=== PATIENT | female | born 1985 | race Caucasian/White ===

== ENCOUNTER 2018-02-02 08:46 | Emergency (ER) | payer BC, MEDICAID ==
[2018-02-02 09:21] LABS: ABS Basophils 0.1 10^3/ul (0-0.2); ABS Eosinophils 0.3 10^3/ul (0-0.6); ABS Lymphocytes 3.4 10^3/ul (1.0-4.8); ABS Monocytes 0.9 10^3/ul (0-0.8); ABS Neutrophils 8.3 10^3/ul (1.5-7.7); ABS Nucleated RBC 0 10^3/ul; Hematocrit 40 % (35-47); Hemoglobin 13.8 g/dl (12.0-16.0); Lymphocyte % 26.2 % (25-47); Mean Corpuscular HGB Conc 34 g/dl (31-36); Mean Corpuscular Hemoglobin 29 pg (27-31); Mean Corpuscular Volume 85 fL (80-97); Mean Platelet Volume 7.6 um3 (7.4-10.4); Nucleated Red Blood Cells % 0; Platelet Count 323 10^3/ul (150-450); Red Cell Distribution Width 13 % (10.5-15); White Blood Count 12.9 10^3/ul (3.5-10.8)
[2018-02-02 09:26] LABS: INR 0.92 (0.77-1.02)
[2018-02-02 09:38] LABS: EGFR Non-African American 82.6 (>60)
[2018-02-02 11:16] VITALS: BP 141/87
--- NOTE | 2018-02-02 11:31 | RAD ---
Indication: Stagnant beta hCG levels. Unknown gestational age. Comparison: No relevant prior exams available on the [facility] PACS for comparison. Technique: Transvaginal obstetrical ultrasound. Report: 0.42 cm mean diameter cystic structure at the fundal portion of the endometrium without visualized pole or yolk sac. Negative for fluid within the endocervical canal. 2.6 x 1.9 x 1.9 cm RIGHT ovary with documented vascular flow is remarkable for small follicles only. 1.3 x 0.9 x 0.8 cm irregular margin complex cystic structure without associated vascularity on Doppler inferior to the RIGHT ovary represent a paraovarian cyst or potentially an ectopic given absence of a definitive documented IUP. 3.1 x 3.1 x 2.3 cm LEFT ovary with documented vascular flow is remarkable for a 1.6 cm maximum dimension complex heterogeneous echogenicity lesion devoid of intrinsic vascularity. This structure is low suspicion given small size. The differential includes an involuting hemorrhagic cyst as well as a corpus luteum. Negative for free pelvic fluid. IMPRESSION: #. As no definitive IUP is documented the 1.3 cm nonspecific complex cystic structure inferior to the RIGHT ovary is suspicious for a potential ectopic . Correlate with clinical assessment and serial beta-hCG. #. Negative for free pelvic fluid.
--- NOTE | 2018-02-02 12:33 | ED ---
- HPI Summary HPI Summary: Patient is a 32-year-old female who is approximately 4 weeks presenting to the ED with a concern for a possible ectopic. She states she had her hCG obtained 1 week ago which was at 313, rechecked yesterday at 405. Transvaginal and transabdominal ultrasound both obtained at her [facility] which did not show an IUP or signs of ectopic. However, she called her [facility] today and they requested she come to the ED to have a further checkup to see if ectopic is present. She denies any pain. Denies any vaginal bleeding or discharge. Denies any back pain or urinary symptoms. She states she feels otherwise well and at her baseline. - History of Current Complaint Chief Complaint: EDOBProblems Stated Complaint: OB PROBLEM/ Time Seen by Provider: 02/02/18 09:00 Hx Obtained From: Patient Chief Complaint: Concern for Embryonic Dem Onset/Duration: Started Days Ago Timing: Constant Current Severity: None Pain Intensity: 0 Location of Pain: None Character: None Associated Signs and Symptoms: Positive: Negative - Allergies/Home Medications Allergies/Adverse Reactions: Allergies Allergy/AdvReac Type Severity Reaction Status Date / Time Penicillins Allergy Swelling Verified 02/02/18 08:53 Home Medications: Home Medications Sertraline HCl [Zoloft] 100 mg PO DAILY 02/02/18 [History Confirmed 02/02/18] PMH/Surg Hx/FS Hx/Imm Hx Previously Healthy: Yes - Immunization History Hx Pertussis Vaccination: No Immunizations Up to Date: Unable to Obtain/Confirm Infectious Disease History: No Infectious Disease History: Denies: Traveled Outside the [place] in Last 30 Days - Social History Occupation: Unemployed Lives: With Family Alcohol Use: None Hx Substance Use: No Substance Use Type: Reports: None Smoking Status (MU): Never Smoked Tobacco Review of Systems Constitutional: Negative Negative: Fever, Chills, Fatigue, Skin Diaphoresis Negative: Palpitations, Chest Pain Negative: Shortness Of Breath, Cough Genitourinary: Negative Positive: no symptoms reported, see HPI Negative: Arthralgia, Myalgia Skin: Negative Psychological: Normal All Other Systems Reviewed And Are Negative: Yes Physical Exam - Physical Exam Triage Information Reviewed: Yes Vital Signs Reviewed: Yes Appearance: Positive: Well-Appearing, Well-Nourished Skin: Positive: Warm, Skin Color Reflects Adequate Perfusion Head/Face: Positive: Normal Head/Face Inspection Eyes: Positive: EOMI, BECCA, Conjunctiva Clear Neck: Positive: Supple, No Lymphadenopathy Respiratory/Lung Sounds: Positive: Clear to Auscultation, Breath Sounds Present Cardiovascular: Positive: RRR, Pulses are Symmetrical in both Upper and Lower Extremities Bowel Sounds: Positive: Present Musculoskeletal: Positive: Normal, Strength/ROM Intact Neurological: Positive: Alert, Oriented to Person Place, Time, Speech Normal Psychiatric: Positive: Affect/Mood Appropriate Diagnostics - Vital Signs Vital Signs Temp Pulse Resp BP Pulse Ox 02/02/18 11:35 98.2 F 88 16 141/87 100 02/02/18 11:16 141/87 02/02/18 11:15 88 100 02/02/18 08:49 97.7 F 90 16 125/86 98 - Laboratory Lab Results: Lab Results 02/02/18 02/02/18 02/02/18 Range/Units 09:07 09:07 09:07 WBC 12.9 H (3.5-10.8) 10^3/ul RBC 4.70 (4.00-5.40) 10^6/ul Hgb 13.8 (12.0-16.0) g/dl Hct 40 (35-47) % MCV 85 (80-97) fL MCH 29 (27-31) pg MCHC 34 (31-36) g/dl RDW 13 (10.5-15) % Plt Count 323 (150-450) 10^3/ul MPV 7.6 (7.4-10.4) um3 Neut % (Auto) 64.2 (38-83) % Lymph % (Auto) 26.2 (25-47) % [place] % (Auto) 6.6 (0-7) % Eos % (Auto) 2.0 (0-6) % Baso % (Auto) 1.0 (0-2) % Absolute Neuts (auto) 8.3 H (1.5-7.7) 10^3/ul Absolute Lymphs (auto) 3.4 (1.0-4.8) 10^3/ul Absolute Monos (auto) 0.9 H (0-0.8) 10^3/ul Absolute Eos (auto) 0.3 (0-0.6) 10^3/ul Absolute Basos (auto) 0.1 (0-0.2) 10^3/ul Absolute Nucleated RBC 0 10^3/ul Nucleated RBC % 0 INR (Anticoag Therapy) 0.92 (0.77-1.02) Sodium 137 (135-145) mmol/L Potassium 3.6 (3.5-5.0) mmol/L Chloride 105 (101-111) mmol/L Carbon Dioxide 22 (22-32) mmol/L Anion Gap 10 (2-11) mmol/L BUN 9 (6-24) mg/dL Creatinine 0.80 (0.51-0.95) mg/dL Est GFR ( Amer) 100.0 (>60) Est GFR (Non-Af Amer) 82.6 (>60) BUN/Creatinine Ratio 11.3 (8-20) Glucose 126 H (70-100) mg/dL Calcium 8.6 (8.6-10.3) mg/dL Total Bilirubin 0.40 (0.2-1.0) mg/dL AST 20 (13-39) U/L ALT 21 (7-52) U/L Alkaline Phosphatase 70 (34-104) U/L Total Protein 7.2 (6.4-8.9) g/dL Albumin 4.0 (3.2-5.2) g/dL Globulin 3.2 (2-4) g/dL Albumin/Globulin Ratio 1.3 (1-3) Beta HCG, Quant 504.56 mIU/mL Result Diagrams: 02/02/18 09:07 02/02/18 09:07 Lab Statement: Any lab studies that have been ordered have been reviewed, and results considered in the medical decision making process. Course/Dx - Course Course Of Treatment: During the course of treatment, the patient is evaluated for possible ectopic due to low hCG levels. HCG obtained and is 505, this is increased from yesterday however this is not doubling as it showed a normal IUP. Transvaginal ultrasound obtained to assess for ectopic. There is no evidence of an IUP or ectopic at this time. Other labs are stable. She remains asymptomatic. I have advised she follow up with her [facility] next week when she returns from vacation or return to the ED if she develops any worsening symptoms. She is agreeable to this. - Diagnoses Provider Diagnoses: Elevated serum hCG Discharge - Sign-Out/Discharge Documenting (check all that apply): Patient Departure - Discharge Plan Condition: Stable Disposition: HOME Referrals: Kenya Cason NP [Primary Care Provider] - Additional Instructions: You will need to have more HCG's run before determination of viable Please follow up with the OBGYN as scheduled - Billing Disposition and Condition Condition: STABLE Disposition: Home
== END 2018-02-02 11:35 | disposition home or self-care (01) ==
LOC: ED 08:46
DX: O02.81 Inappropriate change in quantitative human chorionic gonadotropin (hCG) in early pregnancy (principal); Z88.0 Allergy status to penicillin
CPT/HCPCS: 36415; 76817; 80053; 84702; 85025; 85610; 99282

== ENCOUNTER 2018-06-22 15:56 | Emergency (ER) | payer BC, MEDICAID ==
--- NOTE | 2018-06-22 16:52 | ED ---
Skin Complaint - HPI Summary HPI Summary: A 32 y/o female presents to [facility] due to a possible allergic reaction with a chief complaint of rash/hives since 20:00 06/21/18. She claims that her hives have been intermittent. She denies using any new medication/soap/lotion. She claims that she has been taking benadryl but her rash still comes back. She states that her throat is a little tight but denies SOB. 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 - History of Current Complaint Chief Complaint: EDRashSkinAbscess Time Seen by Provider: 06/22/18 16:42 Stated Complaint: POSS ALLERGIC RXN Hx Obtained From: Patient Onset/Duration: Started Hours Ago Skin Exposure Onset/Duration: Hours Ago Timing: Intermittent Onset Severity: Mild Current Severity: Mild Pain Intensity: 0 Pain Scale Used: 0-10 Numeric Skin Location: Diffuse Character: Hives Aggravating Symptom(s): Nothing Alleviating Symptom(s): Nothing Associated Signs & Symptoms: Throat Tightening Related History: Insect Bite/Sting - Allergy/Home Medications Allergies/Adverse Reactions: Allergies Allergy/AdvReac Type Severity Reaction Status Date / Time fire ant Allergy Anaphylatic Verified 06/22/18 16:22 Shock Penicillins Allergy Swelling Verified 06/22/18 16:31 Home Medications: Home Medications NK [No Home Medications Reported] 06/22/18 [History Confirmed 06/22/18] PMH/Surg Hx/FS Hx/Imm Hx Endocrine/Hematology History: Denies: Hx Diabetes Cardiovascular History: Denies: Hx Coronary Artery Disease, Hx Hypercholesterolemia, Hx Hypertension Infectious Disease History: No Infectious Disease History: Denies: Traveled Outside the [place] in Last 30 Days - Family History Known Family History: Negative: Cardiac Disease, Hypertension, Diabetes - Social History Alcohol Use: Occasionally Hx Substance Use: No Substance Use Type: Reports: None Smoking Status (MU): Never Smoked Tobacco Review of Systems Negative: Fever Respiratory: Other - positive: throat tightness Negative: Shortness Of Breath Positive: Rash All Other Systems Reviewed And Are Negative: Yes Physical Exam - Summary Physical Exam Summary: Appearance: The patient is well-nourished in no acute distress and in no acute pain. Skin: The skin is warm and dry. Some uriticarial areas on the wrists. HEENT: The head is normocephalic and atraumatic. The pupils are equal and reactive. The conjunctivae are clear and without drainage. Nares are patent and without drainage. Mouth reveals moist mucous membranes and the throat is without erythema and exudate. The external ears are intact. The ear canals are patent and without drainage. The tympanic membranes are intact. Neck: The neck is supple with full range of motion and non-tender. There are no carotid bruits. There is no neck vein distension. Respiratory: Chest is non-tender. Lungs are clear to auscultation and breath sounds are symmetrical and equal. Cardiovascular: Heart is regular rate and rhythm. There is no murmur or rub auscultated. There is no peripheral edema and pulses are symmetrical and equal. Abdomen: The abdomen is soft and non-tender. There are normal bowel sounds heard in all four quadrants and there is no organomegaly palpated. Musculoskeletal: There is no back tenderness noted. Extremities are non-tender with full range of motion. There is good capillary refill. There is no peripheral edema or calf tenderness elicited. Neurological: Patient is alert and oriented to person, place and time. The patient has symmetrical motor strength in all four extremities. Cranial nerves are grossly intact. Deep tendon reflexes are symmetrical and equal in all four extremities. Psychiatric: The patient has an appropriate affect and does not exhibit any anxiety or depression. Triage Information Reviewed: Yes Vital Signs On Initial Exam: Initial Vitals Temp Pulse Resp BP Pulse Ox 98.1 F 96 16 127/63 98 06/22/18 16:00 12 16:00 06/22/18 16:00 06/22/18 16:00 06/22/18 16:00 Vital Signs Reviewed: Yes Diagnostics - Vital Signs Vital Signs Temp Pulse Resp BP Pulse Ox 06/22/18 16:00 98.1 F 96 16 127/63 98 - Laboratory Lab Statement: Any lab studies that have been ordered have been reviewed, and results considered in the medical decision making process. Re-Evaluation - Re-Evaluation First Eval Re-Evaluation Time: 18:55 Change: Improved Comment: Pt ready for discharge Course/Dx - Course Course Of Treatment: Ms. Damon started getting hives yesterday. She is had to take Benadryl every 4 hours or they return. She also complains a little bit of tightness in her throat. She last took Benadryl about 5 hours ago and has a couple of urticarial lesions on her wrists at this time. She was nontoxic in appearance and her vital signs are stable throughout her stay. She was given by mouth prednisone, Pepcid and Benadryl here and observed for a period of time. She stated that she felt much improved and was discharged in good condition - Diagnoses Provider Diagnoses: Urticaria Discharge - Sign-Out/Discharge Documenting (check all that apply): Patient Departure - DC - Discharge Plan Condition: Stable Disposition: HOME Patient Education Materials: Urticaria (ED) Referrals: [facility] [place]Outside] (2-3 days) Additional Instructions: Follow up with your PCP in 2-3 days. Return to the ED if you experience any new or worsening symptoms. - Billing Disposition and Condition Condition: STABLE Disposition: Home - Attestation Statements Document Initiated by Molly: Yes Documenting Scribe: Brien Garcia Provider For Whom Molly is Documenting (Include Credential): Kenn Spencer MD Scribe Attestation: IBrien, scribed for Kenn Spencer MD on 06/22/18 at 2046. Scribe Documentation Reviewed: Yes Provider Attestation: The documentation as recorded by the Brien elizabeth accurately reflects the service I personally performed and the decisions made by me, Kenn Spencer MD Status of Scribe Document: Viewed
[2018-06-22] MEDS ORDERED: diPHENhydraMINE PO* 50 MG PO ONE (17:06)
[2018-06-22] MEDS ORDERED: Famotidine TAB* 20 MG PO ONE (17:06)
[2018-06-22] MEDS ORDERED: predniSONE TAB* 20 MG PO ONE (17:06)
[2018-06-22] MEDS ORDERED: diPHENhydraMINE PO* 25 MG ONE (17:11)
[2018-06-22 19:11] VITALS: BP 133/76
== END 2018-06-22 19:10 | disposition home or self-care (01) ==
LOC: ED 15:56
DX: L50.9 Urticaria, unspecified (principal)
CPT/HCPCS: 99282; A9270-GY; J7512

== ENCOUNTER 2018-09-17 17:30 | Emergency (ER) | payer BC, MEDICAID ==
[2018-09-17 17:39] VITALS: BP 137/92
--- NOTE | 2018-09-17 17:44 | UC ---
Complaint Female HPI - HPI Summary HPI Summary: 33 yo female presents with urinary urgency, frequency, and burning since yesterday. She tells me that she has had UTIs in the past and this feels the same. She took azo and had some mild relief at first, but no longer. Denies fever, chills, abdominal pain, n/v, or flank pain. - History Of Current Complaint Chief Complaint: UCGU Stated Complaint: URINARY COMPLAINT Time Seen by Provider: 09/17/18 17:43 Hx Obtained From: Patient Hx Last Menstrual Period: currently Onset/Duration: Sudden Onset Timing: Constant Severity Initially: Mild Severity Currently: Moderate Pain Intensity: 6 Pain Scale Used: 0-10 Numeric - Allergies/Home Medications Allergies/Adverse Reactions: Allergies Allergy/AdvReac Type Severity Reaction Status Date / Time fire ant Allergy Anaphylatic Verified 09/17/18 17:39 Shock Penicillins Allergy Swelling Verified 09/17/18 17:39 Home Medications: Home Medications Azo Bladder Relief 09/17/18 [History] ISOtretinoin [Isotretinoin] 10 mg PO DAILY 09/17/18 [History Confirmed 09/17/18] PMH/Surg Hx/FS Hx/Imm Hx - Additional Past Medical History Additional PMH: Acne - Surgical History Surgical History: Yes Surgery Procedure, Year, and Place: breast reduction age 16 - Family History Known Family History: Negative: Cardiac Disease, Hypertension, Diabetes - Social History Occupation: Employed Full-time Lives: With Family Alcohol Use: Rare Substance Use Type: None Smoking Status (MU): Never Smoked Tobacco Review of Systems All Other Systems Reviewed And Are Negative: Yes Constitutional: Positive: Negative Skin: Positive: Negative Respiratory: Positive: Negative Cardiovascular: Positive: Negative Gastrointestinal: Positive: Negative Genitourinary: Positive: Dysuria, Frequency, Urgency Neurological: Positive: Negative Psychological: Positive: Negative Physical Exam - Summary Physical Exam Summary: GENERAL: NAD. WDWN. No pain distress. SKIN: No rashes, sores, lesions, or open wounds. NECK: Supple. Nontender. No lymphadenopathy. CHEST: CTAB. No r/r/w. No accessory muscle use. Breathing comfortably and in no distress. CV: RRR. Without m/r/g. Pulses intact. Cap refill <2seconds ABDOMEN: Soft. NTTP. No distention or guarding. No CVA tenderness. Bowel sounds present NEURO: Alert. PSYCH: Age appropriate behavior. Triage Information Reviewed: Yes Vital Signs: Initial Vital Signs Temp 97.6 F 09/17/18 17:36 Pulse 94 09/17/18 17:36 Resp 16 09/17/18 17:36 BP 137/92 09/17/18 17:36 Pulse Ox 100 09/17/18 17:36 Vital Signs Reviewed: Yes Complaint Female Dx - Course Course Of Treatment: Unable to obtain UA due to AZO. Urine will be sent for culture. Rx for macrobid and pyridium. - Differential Dx/Diagnosis Provider Diagnosis: UTI (urinary tract infection) Discharge - Sign-Out/Discharge Documenting (check all that apply): Patient Departure All imaging exams completed and their final reports reviewed: No Studies - Discharge Plan Condition: Stable Disposition: HOME Prescriptions: Nitrofurantoin Monohyd/M-Cryst [Macrobid 100 mg Capsule] 100 mg PO BID #10 cap Phenazopyridine 200 mg (NF) [Pyridium 200 MG tab *] 200 mg PO TID #6 tab Patient Education Materials: Urinary Tract Infection in Women (DC) Referrals: Yaz Maloney MD [Primary Care Provider] - Additional Instructions: If you develop a fever, shortness of breath, chest pain, new or worsening symptoms - please call your PCP or go to the ED. Your blood pressure was high at todays visit. Please see your primary provider within 4 weeks for recheck and re-evaluation. - Billing Disposition and Condition Condition: STABLE Disposition: Home
== END 2018-09-17 17:55 | disposition home or self-care (01) ==
LOC: UCEAST 17:30
DX: Z88.0 Allergy status to penicillin (principal); N39.0 Urinary tract infection, site not specified; Z87.440 Personal history of urinary (tract) infections
CPT/HCPCS: 87086; 99212; G0463

== ENCOUNTER 2019-05-11 01:57 | Emergency (ER) | payer BC ==
--- NOTE | 2019-05-11 02:08 | ED ---
Substance Abuse/Use - HPI Summary HPI Summary: LEVEL 5 CAVEAT: HPI LIMITED DUE TO ETOH INTOXICATION. This patient is a 33 year old female brought in by EMS presenting to [facility] with a chief complaint of ETOH intoxication. - History Of Current Complaint Stated Complaint: ETOH PER EMS Time Seen by Provider: 05/11/19 02:04 Hx Last Menstrual Period: currently - Allergies/Home Medications Allergies/Adverse Reactions: Allergies Allergy/AdvReac Type Severity Reaction Status Date / Time fire ant Allergy Anaphylatic Verified 09/17/18 17:39 Shock Penicillins Allergy Swelling Verified 09/17/18 17:39 PMH/Surg Hx/FS Hx/Imm Hx Endocrine/Hematology History: Denies: Hx Diabetes Cardiovascular History: Denies: Hx Coronary Artery Disease, Hx Hypercholesterolemia, Hx Hypertension - Surgical History Surgery Procedure, Year, and Place: breast reduction age 16 - Family History Known Family History: Negative: Cardiac Disease, Hypertension, Diabetes - Social History Alcohol Use: Currently Intoxicated Hx Substance Use: No Substance Use Type: Reports: None Smoking Status (MU): Never Smoked Tobacco - Additional Comments History Additional Comments: LEVEL 5 CAVEAT: PMH LIMITED DUE TO ETOH INTOXICATION. Review of Systems - ROS Summary Review of Systems Summary: LEVEL 5 CAVEAT: ROS LIMITED DUE TO ETOH INTOXICATION. Positive: Other - ETOH intoxication All Other Systems Reviewed And Are Negative: No Physical Exam - Summary Physical Exam Summary: General: Well-developed, Well-nourished FEMALE. Lethargic. Arousable but does not answer questions. HEENT: Normocephalic, Atraumatic. Eyes: Conjuctiva normal, PERRL. Ears: TMs within normal limits. Nares: (-) discharge, (-) erythema. Oropharynx: Clear, mucous membranes moist, (-) exudates. Neck: Soft, FROM, (-) lymphadenopathy, (-) thyromegaly, (-) JVD. Cardiovascular: Normal sinus rhythm, (-) murmur. Lungs: Clear to auscultation bilaterally (-) wheezes, (-) rales, (-) rhonchi. Abdomen: Soft, non-tender, non-distended, (-) organomegaly, normal bowel sounds. Back: (-) CVA tenderness Extremities: No edema. Skin: Warm, dry, (-) rash. Neuro: Cannot assess- Patient intoxication Psychiatric: Cannot assess- Patient intoxication. Triage Information Reviewed: Yes Vital Signs On Initial Exam: Temp Pulse Resp BP Pulse Ox 98.7 F 86 20 89/54 99 05/11/19 02:03 05/11/19 02:03 05/11/19 02:03 05/11/19 02:03 05/11/19 02:03 Vital Signs Reviewed: Yes Procedures - Sedation Patient Received Moderate/Deep Sedation with Procedure: No Diagnostics - Laboratory Result Diagrams: 05/11/19 02:40 05/11/19 02:40 Lab Statement: Any lab studies that have been ordered have been reviewed, and results considered in the medical decision making process. Course/Dx - Course Course Of Treatment: 33-year-old female with acute alcohol intoxication. Patient with vomiting. Given IV fluids, Zofran, Protonix. Patient given potassium for hypokalemia. Sign changes shift awaiting sobriety and reevaluation. - Diagnoses Provider Diagnoses: Alcohol intoxication Discharge ED - Sign-Out/Discharge Documenting (check all that apply): Sign-Out Patient Signing out patient TO: Alexis Mathews - At shift change 0700 pending sobriety. - Discharge Plan Condition: Stable Referrals: Yaz Maloney MD [Primary Care Provider] - - Billing Disposition and Condition Condition: STABLE - Attestation Statements Document Initiated by [email or web address]: Yes Documenting Scribe: Nima Kang Provider For Whom Molly is Documenting (Include Credential): Mariah Winn MD Scribe Attestation: Nima Reilly, scribed for Mariah Winn MD on 05/11/19 at 0624. Scribe Documentation Reviewed: Yes Provider Attestation: The documentation as recorded by the Nima elizabeth accurately reflects the service I personally performed and the decisions made by me, Mariah Winn MD Status of Scribe Document: Viewed
[2019-05-11] MEDS ORDERED: NS 0.9% 1000 ML** 1,000 ML IV ONE ×2 (02:27→04:20)
[2019-05-11] MEDS ORDERED: Ondansetron INJ* 2 MG/ML VIAL IV ONE (02:27)
[2019-05-11 02:49] LABS: ABS Basophils 0.1 10^3/ul (0-0.2); ABS Eosinophils 0.1 10^3/ul (0-0.6); ABS Lymphocytes 4.5 10^3/ul (1.0-4.8); ABS Monocytes 0.7 10^3/ul (0-0.8); ABS Neutrophils 7.5 10^3/ul (1.5-7.7); Hematocrit 40 % (35-47); Hemoglobin 13.4 g/dL (12.0-16.0); Lymphocyte % 34.9 %; Mean Corpuscular HGB Conc 33 g/dL (31-36); Mean Corpuscular Hemoglobin 30 pg (27-31); Mean Corpuscular Volume 89 fL (80-97); Mean Platelet Volume 7.7 fL (7.4-10.4); Nucleated Red Blood Cells % 0.1; Platelet Count 369 10^3/uL (150-450); Red Blood Count 4.49 10^6 /uL (3.70-4.87); Red Cell Distribution Width 13 % (10-15); White Blood Count 12.9 10^3/uL (3.5-10.8)
[2019-05-11 03:11] LABS: ALT 23 U/L (7-52); AST 22 U/L (13-39); Albumin/Globulin Ratio 1.3 (1-3); Alkaline Phosphatase 67 U/L (34-104); Anion Gap 12 mmol/L (2-11); BUN/Creatinine Ratio 12.3 (8-20); Blood Urea Nitrogen 9 mg/dL (6-24); CO2 Carbon Dioxide 22 mmol/L (22-32); Calcium 8.6 mg/dL (8.6-10.3); Chloride 101 mmol/L (101-111); EGFR African American 110.4 (>60); EGFR Non-African American 91.3 (>60); Globulin 3.1 g/dL (2-4); Glucose 164 mg/dL (70-100); Potassium 2.9 mmol/L (3.5-5.0); Sodium 135 mmol/L (135-145); Total Protein 7.1 g/dL (6.4-8.9)
[2019-05-11 03:16] LABS: Acetaminophen < 15 mcg/mL; Alcohol 291 mg/dL (<10); Salicylate < 2.50 mg/dL (<30)
--- OUTSIDE RECORDS SUMMARY | 2019-05-11 05:57 | XMS REPORT | Continuity of Care Document ---
:1985 Author Organization [facility] Address [address] [place] [address] Phone Care Team Providers Name Role Phone Vanessa Deng NP Unavailable Unavailable Allergies, Adverse Reactions, Alerts Substance Reaction Status Penicillins swelling Active Medications Medication Instructions Dosage Effective Dates Status Comments (start - stop) acyclovir 400 mg take 1 tablet by oral - Active tablet route 2 times a day Lexapro 20 mg tablet - Active Ortho Tri-Cyclen LO - Active (28) 0.18 mg/0.215 mg/0.25 mg-25 mcg tablet isotretinoin 10 mg - Active capsule Problems Condition Effective Dates (start - Clinical Status Comments stop) Human immunodeficiency virus [HIV] - counseling Encounter for surveillance of contraceptive pills Encntr screen for infections w sexl mode of transmiss Right lower quadrant pain Cyst of Bartholin's gland Dysuria Encounter for test, result negative Acute vaginitis Human immunodeficiency virus [HIV] - counseling Encounter for screening for human - immunodeficiency virus Encounter for surveillance of contraceptive pills Encntr screen for infections w sexl mode of transmiss Counseling, unspecified Encounter for surveillance of contraceptive pills Encntr for cerv smear to cnfrm norm smr fol init abn smear Encntr screen for infections w sexl mode of transmiss Encounter for test, result positive Human immunodeficiency virus [HIV] - counseling Encntr screen for infections w sexl mode of transmiss Weeks of gestation of not specified Encounter for screening for human - immunodeficiency virus Atyp squam cell of undet signfc cyto smr crvx (ASC-US) Human immunodeficiency virus [HIV] - counseling Encounter for oth general cnsl and advice on contraception Encntr screen for infections w sexl mode of transmiss Acute vaginitis Encounter for screening for human - immunodeficiency virus Procedures Procedure Date PREVENTIVE COUNSELING, Under 8 Minutes N.GONORRHOEAE, DNA, AMP PROB CHYLMD DNA, AMP PROBE TRICHOMONAS VAGIN, DIR PROBE OFFICE/OUTPATIENT VISIT, EST WET SMEAR ASSAY OF BODY FLUID-PH OTHER Medical Services Contraceptive Damage Prevention Coordinator.Svc. Other Damage Prevention Coordinator.Svc. STI Results Test Name Date and Time Measure Units Reference Range Abnormal Flag Status Comments Panel Description: Wet Mount Final Wet Mount 09:55:03 NegativeHyphae/Michelle: noBudding Final yeast: noTrich: noClue cells: noWBCs: yes (few)Amine/Whiff test: negativepH: 4.0 Panel Description: C trach DNA XXX Ql PCR Final Swab CT - Negative N Final Performed by:
CDD Vaginal 00:00:00 ([id number])

Panel Description: Amplified GC - Vaginal Final Swab GC - Negative N Final : Vaginal 00:00:00 No

Performed by:
CDD ([id number])

Advance Directives Directive Yes / No Effective Date File Name No information Encounters Encounter Practice Location Reason(s) Diagnoses Date Provider Providers Description For Visit Copied on Encounter OFFICE/OUTPA [facility] Pelvic Human Ish Mendez. Referring TIENT VISIT, [facility] [place] Pain immunodeficiency 1 [address] Provider: THOMAS Rome (chief virus [HIV] [address], [place], [place]essa [place] complaint) [place], [address], [place], [address], [address] for [place]. [address] [place] surveillance of St, St, [place], [place], [place], [address]. [id number], screen for [place] infections w tel:[phone] sexl mode of [id number] transmissRight lower quadrant painCyst of Bartholin's gland [facility] DysuriaEncounter Sep-2 Nick Moya. Referring [facility] [place] for [address] Provider: [facility] test, result [address] St, [place], [place], [address]. Romero, [address], 620 vaginitis tel:[phone] [address], [address], [place], [place], [place], [address]. [id number], tel:[phone] [place] [phone] tel:[phone] [facility] Human Sep-0 Александр Referring [facility] [place] immunodeficiency 6- Chika. 620 Provider: [facility] virus [HIV] [address], Chika F[place] counselingEncoun [place], [place], Александр J, [place], [address] [place] [address], [place]. [address] screening for tel:[phone] [address], St, [place], [place] [address] [place], [place], [address]. [id number], virusEncounter tel:[phone] [place] for surveillance [id number] tel:[phone] of contraceptive [phone] pillsEncntr screen for infections w sexl mode of transmiss [facility] Counseling, Sep-0 [place] Vanessa. Referring [facility] [place] unspecified [address] Provider: [facility] [address], [place], [place], [address], [place], [address] [place], 620 [place]. [address], St, [place], [place], [id number], [address].Cons [place] ulting tel:[phone] Provider: [id number] [place]SE [place] [facility]. [facility] Encounter for Sep- Ish Vanessa. Referring [facility] [place] surveillance of [address] Provider: [facility] contraceptive [address], [place], [place], [address], White, [address] [place], 620 cerv smear to [place]. [address] [place] cnfrm norm smr St, St, [place], fol init abn [place], [place], [address]. [id number], screen for [place] infections w tel:[phone] sexl mode of [phone] transmiss [facility] Dec [facility] [place] Kourtney. [address], [place], [place], [facility], [address] [address]. [address] tel:[phone] St, [place], [address] [place], [id number], [place] tel:[phone] [facility] Encounter for Jessicalum Referring [facility] [place] test, Faiza. [address] W Provider: Southern result [address], Faiza Finger positiveHuman [place], [place], [facility] immunodeficiency [address]. M, [address] virus [HIV] tel:[phone] [address], St, [place], counselingEncntr [address] [place], [address]. [id number], infections w tel:[phone] [place] sexl mode of [id number] tel:[phone] transmissWeeks [phone] of gestation of not specifiedEncount er for screening for human immunodeficiency virus [facility] Atyp squam cell Mar-2 [facility] Referring [facility] [place] of undet signfc Kourtney. [address] W Provider: [place] cyto smr crvx [address], Kourtney Finger (ASC-US) [place], [place], Raphaelidi [facility], 620 [address]. s, [address] tel:[phone] [address], St, [place], [address] [place], [place], [address]. [id number], tel:[phone] [place] [phone] tel:[phone] [facility] Human Mar-0 Romeo Referring [facility] [place] immunodeficiency Tricia. [address] Provider: [place] virus [HIV] [address], Tricia Finger counselingEncoun [place], [place], Romeo [facility], [address] ter [place] [address]. M, [address] general cnsl and tel:[phone] [address], St, [place], [place] [address] [place], [place], [address]. [id number], ntr screen for tel:+ [place] infections w [phone] tel:[phone] sexl mode of [id number] transmissAcute vaginitisEncount er for screening for human immunodeficiency virus Family History Family Member Diagnosis Age At Onset 1st degree relative No hx of venous thromboembolism 1st degree relative No hx of coronary heart disease (female <65, male <55) Immunizations Vaccine Date Status Comments HPV (9-valent) administered Source: New Immunization Record HPV (9-valent) pending Source: New Immunization Record HPV (9-valent) pending Source: New Immunization Record Payers Payer name Insurance type Covered green party ID Authorization(s) [facility] [id number] [facility] [id number] [facility] [id number] [facility] [id number] Social History Type Description Quantity Date Captured Comments Alcohol Use Details Unknown Caffeine Use Details Unknown Tobacco Use Status Current non-smoker Smoking Status Never smoker Non-Smoking Tobacco : No Details Available : No Details Available 2018 Use Details Sex Female Vital Signs Date / Height Weight BMI Pulse Blood Temperature Respiratory Body Head BMI Pulse Inhaled Time: Rate Pressure Rate Surface Circumference percentile Ox Ox Area No information Chief Complaint And Reason For Visit Most recent encounter only, dated '04/15/2019 09:20'. Pelvic Pain (chief complaint) Reason For Referral Reason For Referral No information Plan Of Treatment Date Type Action Status Unknown Immunization HPV (9-valent) ordered Unknown Immunization HPV (9-valent) ordered History Of Present Illness Encounter Date Complaint History Of Present Illness No information Functional Status Date Functional Assessment No information Medications Administered Medication Instructions Dosage Effective Dates (start - stop) Status Comments No information Instructions Date Instruction Additional Information No information Assessments Type Assessment Date assessment Human immunodeficiency virus [HIV] counseling assessment Encounter for surveillance of contraceptive pills assessment Encntr screen for infections w sexl mode of transmiss assessment Right lower quadrant pain assessment Cyst of Bartholin's gland Goals Health Concern Goal Type Priority Status Date No information Medical Equipment Description Device [place] Device Identifier Effective Dates (start - stop ) Status No information Mental Status Date Cognitive Assessment Normal Orientation Health Concerns Observation Date No information Concern Status Date No information
--- OUTSIDE RECORDS SUMMARY | 2019-05-11 05:57 | XMS REPORT | Continuity of Care Document ---
:1985 Author Organization [facility] Address [address] [place] [address] Phone Care Team Providers Name Role Phone Catherine TAYLOR, Kourtney Unavailable Unavailable Allergies, Adverse Reactions, Alerts Substance [...] human - immunodeficiency virus Procedures Procedure Date No information Results Test Name Date and Time Measure Units Reference Range Abnormal Flag Status Comments No information Advance Directives Directive Yes / No Effective Date File Name No information Encounters Encounter Practice Location Reason(s) Diagnoses Date Provider Providers Description For Visit Copied on Encounter [facility] Oct-2 [facility] [place] 5 Kourtney. [address], [place], [place], [facility], [address] [address]. [address] tel:[phone] , [place], [address] [place], [id number], [place] tel:[phone] [facility] Human Oct-0 White Vanessa. Referring [facility] [place] immunodeficiency [address] Provider: [place] virus [HIV] [address], [place], [place], [address], [address], [facility] ter for [place]. W [place] [address] surveillance of St, , [place], contrace[place], [place], [address]. [id number], screen for [place] infections w tel:[phone] sexl mode of [id number] transmissRight lower quadrant painCyst of Bartholin's gland [facility] DysuriaEncounter Sep-2 Nick Moya. Referring [facility] [place] for [address] Provider: Southern test, result 9 St, [place], [place], [address]. Romero, 620 [facility], 620 vaginitis tel:[phone] [address], [address], [place], [place], [address]. [id number], tel:[phone] [place] [phone] tel:[phone] [facility] Human Sep-0 Александр Referring [facility] [place] immunodeficiency 6-201 Chika. 620 Provider: [place] virus [HIV] [address], Chika F[place] counselingEncoun [place], Александр J, [place], [address] [place] [address], [place]. [address] screening for tel:[phone], St, [place], human [address] [place], [place], [address]. [id number], virusEncounter tel:+[phone] [place] for surveillance [phone] tel:+ of contraceptive [phone] pillsEncntr screen for infections w sexl mode of transmiss [facility] Counseling, Sep-0 Ish Mendez. Referring [facility] [place] unspecified [address] Provider: [facility] [address], [place], [place], [address], White, 620 [facility], 620 [place]. [address], St, [place], [place], [id number], [address].Cons [place] ulting tel:[phone] Provider: [id number] [place]URSE [place] [facility]. [facility] Encounter for Sep- Ish Mendez. Referring [facility] [place] surveillance of [address] Provider: [facility] contraceptive [address], [place], [place], [address], White, 620 [facility], 620 cerv smear to [place]. W [place] [address] [place] [address] cnfrm norm smr St, St, [place], fol init abn [place], [address]. [id number], screen for [place] infections w tel:[phone] sexl mode of [phone] transmiss [facility] [place] Kourtney. [address], [place], [facility], [address] [address]. [address] tel:+7 St, [place], [address] [place], [id number], [place] tel:+ [phone] [facility] Encounter for Jessicalum Referring [facility] [place] test, Faiza. 620 W Provider: [facility] result [address], Faiza Finger positiveHuman [place], [place] [facility], 620 immunodeficiency [address]. M, [address] virus [HIV] tel:[phone] St, [place], counselingEncntr [address] [place], [address]. [id number], infections w tel:+[phone] [place] sexl mode of [id number] tel:+[phone] transmissWeeks 491942 of gestation of not specifiedEncount er for screening for human immunodeficiency virus [facility] Atyp squam cell Mar-2 Raphaelidis Referring [facility] [place] of undet signfc 7-201 Kourtney. [address] W Provider: Wild cyto smr crvx [address], Kourtney Finger (ASC-US) [place], Raphgayatri [facility], 620 [address]. s, [address] tel:[phone], St, [place], [address] [place], [address]. [id number], tel:[phone] [place] [phone] tel:[phone] [facility] Human Mar-0 Romeo Referring [facility] [place] immunodeficiency 1-201 Tricia. [address] W Provider: Wild virus [HIV] [address], Tricia Finger counselingEncoun [place], [place], [facility], [address] ter for oth [address]. M, [address] general cnsl and tel:[phone], St, [place], [place] [address] [place], [place], [place], [address]. [id number], ntr screen for tel:[phone] [place] infections w [id number] tel:+[phone] sexl mode of [id number] transmissAcute vaginitisEncount er for screening for human [...] Record Payers Payer name Insurance type Covered libertarian ID Authorization(s) [facility] [id number] [facility] [id number] [facility] [id number] [facility] [id number] Social History Type Description Quantity Date Captured Comments Alcohol Use Details Unknown Caffeine Use Details Unknown Tobacco Use Status Unknown Smoking Status Never smoker Sex Female Vital Signs Date / Height Weight BMI Pulse Blood Temperature Respiratory Body Head BMI Pulse Inhaled Time: Rate Pressure Rate Surface Circumference percentile Ox Ox Area No information Chief Complaint And Reason For Visit No information Reason For Referral Reason For Referral No [...] Information No information Assessments Type Assessment Date No information Goals Health Concern Goal Type Priority Status Date No information Medical Equipment Description Device [place] Device Identifier Effective Dates (start - stop ) Status No information Mental Status Date Cognitive Assessment No information Health Concerns Observation Date No information Concern Status Date No information
--- OUTSIDE RECORDS SUMMARY | 2019-05-11 05:57 | XMS REPORT | Continuity of Care Document ---
:1985 Author Organization [facility] Address [address] [place] [address] Phone Care Team Providers Name Role Phone Chika Fountain NP Unavailable Unavailable Allergies, Adverse Reactions, Alerts [...] immunodeficiency virus Procedures Procedure Date PREVENTIVE COUNSELING, 8-14 Minutes HIV-1/HIV-2, SINGLE ASSAY N.GONORRHOEAE, DNA, AMP PROB CHYLMD DNA, AMP PROBE TRICHOMONAS VAGIN, DIR PROBE N.GONORRHOEAE, DNA, PHARYNGEAL CHYLMD, DNA, PHARYNGEAL OFFICE/OUTPATIENT VISIT, EST OTHER Medical Services Contraceptive Juvenile Counselor.Svc. Other Juvenile Counselor.Svc. STI Results Test Name Date and Time Measure Units Reference Range Abnormal Flag Status Comments No information Advance Directives Directive Yes / No Effective Date File Name No information Encounters Encounter Practice Location Reason(s) Diagnoses Date Provider Providers Description For Visit Copied on Encounter PREVENTIVE [facility] STI Human Александр Referring COUNSELING, [facility] [place] Testing No immunodeficiency Chika. 620 Provider: 8-14 Minutes [facility] Symptoms virus [HIV] [address], Chika F[place] (F) (chief counselingEncoun [place], [place], Александр Pardo, Sylvia, [address] complaint) ter [place] [address], [place]. [address] screening for tel:[phone] [address], [facility], human [address] [place], [place], [address]. [id number], virusEncounter tel:[phone] [place] for surveillance [id number] tel:[phone] of contraceptive [phone] pillsEncntr screen for infections w sexl mode of transmiss [facility] Counseling, Sep-0 Ish Tesfayea. Referring [facility] [place] unspecified [address] Provider: [facility] 9 [facility], [place], [address], [place], 620 [place]. [address], , [place], [place], [id number], [address].Cons [place] ulting tel:[phone] Provider: 875245 [place]SE [place] [facility] Encounter for Sep- Ish Vanessa. Referring [facility] [place] surveillance of [address] Provider: [place] contraceptive [address], [place], [place], [address], White, 620 [facility], 620 cerv smear to [place]. [address] [place] [address] [place] cnfrm norm smr St, St, [place], fol init abn [place], [address]. [id number], screen for [place] infections w tel:[phone] sexl mode of [phone] transmiss [facility] Dec [facility] [place] 7 Kourtney. [address], [place], [place], [place], 620 [address]. [address] [place] tel:[phone] St, [place], [address] [place], [id number], [place] tel:[phone] [facility] Encounter for Jessicaantoinette Referring [facility] [place] test, Faiza. 620 W Provider: [facility] result [address], Faiza Finger positiveHuman [place], [place], [facility] immunodeficiency [address]. M, [address] virus [HIV] tel:[phone], St, [place], counselingEncntr [address] [place], [address]. [id number], infections w tel:[phone] [place] sexl mode of [id number] tel:[phone] transmissWeeks [id number] of gestation of not specifiedEncount er for screening for human immunodeficiency virus [facility] Atyp squam cell Mar-2 [facility] Referring [facility] [place] of undet signfc Kourtney. [address] W Provider: [facility] cyto smr crvx [address], Kourtney Finger (ASC-US) [place], Raphaelidi [facility], 620 [address]. s, [address] tel:[phone], St, [place], [address] [place], [address]. [id number], tel:[phone] [place] [phone] tel:[phone] [facility] Human Mar-0 Romeo Referring [facility] [place] immunodeficiency 1- Tricia. 620 W Provider: [place] virus [HIV] [address], Tricia [place] counselingEncoun [place], [place], [facility], 620 ter [place] [address]. M, [address] [place] general cnsl and tel:[phone] [address], St, [place], [place] [address] [place], [place], [place], [address]. [id number], ntr screen for tel:+[phone] [place] infections w [id number] tel:+[phone] sexl mode of [id number] transmissAcute vaginitisEncount er for screening for human immunodeficiency virus Family History Family Member Diagnosis Age At Onset 1st degree relative No hx of venous thromboembolism 1st degree relative No hx of coronary heart disease (female <65, male <55) Immunizations Vaccine Date Status Comments No information Payers Payer name Insurance type Covered alliance party ID Authorization(s) [facility] [id number] Social History Type Description Quantity Date Captured [...] For Visit Most recent encounter only, dated '03/21/2019 14:10'. STI Testing No Symptoms (F) (chief complaint) Reason For Referral Reason For Referral No information Plan Of Treatment Date Type Action Status Appointment TATY ABARCA BOOKED History Of Present Illness Encounter Date Complaint History Of Present Illness No information Functional Status Date Functional Assessment No information Medications Administered Medication Instructions Dosage Effective Dates (start - stop) Status Comments No information Instructions Date Instruction Additional Information No information Assessments Type Assessment Date assessment Human immunodeficiency virus [HIV] counseling assessment Encounter for screening for human immunodeficiency virus 2018 assessment Encounter for surveillance of contraceptive pills assessment Encntr screen for infections w sexl mode of transmiss Goals Health Concern Goal Type Priority Status Date No information Medical Equipment Description Device V[place] Device Identifier Effective Dates (start - stop ) Status No information Mental Status Date Cognitive Assessment Normal Orientation Health Concerns Observation Date No information Concern Status Date No information
--- OUTSIDE RECORDS SUMMARY | 2019-05-11 05:57 | XMS REPORT | Continuity of Care Document ---
:1985 Author Organization [facility] Address [address] [place] [address] Phone Care Team Providers Name Role Phone Nita Le Unavailable Unavailable Allergies, Adverse Reactions, Alerts Substance Reaction Status Penicillins swelling Active Medications Medication Instructions Dosage Effective Dates Status Comments (start - stop) metronidazole 500 mg take 1 tablet by oral - Active tablet route 2 times every day, no ETOH acyclovir 400 mg tablet take 1 tablet by oral - Active route 2 times a day Lexapro 20 mg tablet - Active Ortho Tri-Cyclen LO - Active (28) 0.18 mg/0.215 mg/0.25 mg-25 mcg tablet isotretinoin 10 mg - Active capsule Problems Condition Effective Dates (start - Clinical Status Comments stop) Dysuria Encounter for test, result negative Acute [...] human - immunodeficiency virus Procedures Procedure Date URINALYSIS, DIP NONAUTO W/O SCOPE URINE TEST WET SMEAR ASSAY OF BODY FLUID-PH URINALYSIS, MICRO OFFICE/OUTPATIENT VISIT, EST IMMUNIZATION ADMIN HPV VACCINE 9 VALENT, IM OTHER Medical Services Contraceptive Survey Field Technician.Svc. Other Survey Field Technician.Svc. STI Results Test Name Date and Time Measure Units Reference Range Abnormal Flag Status Comments Panel Description: Urine Micro Final Urine Micro 14:24:50 Bacteria: yes (moderate)Epithelial Final cells: yes (many)RBCs: noCasts: no Panel Description: Wet Mount Final Wet Mount 14:21:33 Hyphae/Michelle: noBudding yeast: Final noTrich: noClue cells: yes (>=20%)WBCs: yes (moderate)Amine/Whiff test: positivepH: 5.0 Panel Description: High Sensitivity Urine Test Final High Sensitivity Urine 14:12:06 NegativeInternal Quality Final Test Control: Positive Panel Description: Urine Dipstick Final Urine Dipstick 14:11:29 Color: yellowGlucose: Final negativeKetones: negativeProtein: negativeNitrite: negativeLeukocytes: moderateBlood: negative Advance Directives Directive Yes / No Effective Date File Name No information Encounters Encounter Practice Location Reason(s) Diagnoses Date Provider Providers Description For Visit Copied on Encounter OFFICE/OUTPA [facility] Vaginal DysuriaEncounter Sep-2 Nick Moya. Referring TIENT VISIT, [facility] [place] Discharge for [address] Provider: EST [facility] a/o Odor test, result [address] St, [place], [place], [address]. Romero, [address] [place], 620 complaint) vaginitis tel:[phone] [address], [place], [place], [address]. [id number], tel:+[phone] [place] [phone] tel:[phone] [facility] Human Sep-0 Александр Referring [facility] [place] immunodeficiency 6- Chika. 620 Provider: [facility] virus [HIV] [address], Chika [place] counselingEncoun [place], Александр J, [place], [address] [place] [address], [place]. [address] screening for tel:+[phone], St, [place], human [address] [place], [place], [address]. [id number], virusEncounter tel:+[phone] [place] for surveillance [phone] tel:+ of contraceptive [phone] pillsEncntr screen for infections w sexl mode of transmiss [facility] Counseling, Sep-0 White Vanessa. Referring [facility] [place] unspecified [address] Provider: [facility] [address], [place], [place], [address], White, [address] [place], 620 [place]. [address], St, [place], [place], [id number], [address].Cons [place] ulting tel:[phone] Provider: [id number] [place]SE [place] [facility]. [facility] Encounter for Ish Mendez. Referring [facility] [place] surveillance of [address] Provider: [facility] contraceptive [address], [place], [place], [address], White, [address] [place], 620 cerv smear to [place]. [address] [address] [place] cnfrm norm smr St, St, [place], fol init abn [place], [place], [address]. [id number], screen for [place] infections w tel:[phone] sexl mode of [phone] transmiss [facility] Jun- Raphaelidis [facility] [place] Kourtney. [address], [place], [place], [place], [address] [address]. [address] tel:+[phone] St, [place], [address] [place], [id number], [place] tel:+ [phone] [facility] Encounter for Kornblum Referring [facility] [place] test, 4-201 Faiza. [address] W Provider: Southern result [address], Fa[place] positiveHuman [place], [place], [facility] immunodeficiency [address]. M, [address] virus [HIV] tel:[phone], St, [place], counselingEncntr [address] [place], [place], [address]. [id number], infections w tel:[phone] [place] sexl mode of [id number] tel:[phone] transmissWeeks 980803 of gestation of not specifiedEncount er for screening for human immunodeficiency virus [facility] Atyp squam cell Mar-2 Raphaelidis Referring [facility] [place] of undet signfc 7-201 Kourtney. [address] W Provider: Wild cyto smr crvx [address], K[place]ney [place] (ASC-US) [place], [place], [facility], 620 [address]. s, [address] tel:[phone], St, [place], [address] [place], [address]. [id number], tel:[phone] [place] [phone] tel:[phone] [facility] Human Mar-0 Romeo Referring [facility] [place] immunodeficiency 1-201 Triica. [address] W Provider: [place] virus [HIV] [address], Tricia [place] counselingEncoun [place], [place], [facility], [facility] [place] [address]. M, [address] general cnsl and tel:[phone], St, [place], [place] [address] [place], [place], [address]. [id number], ntr screen for tel:[phone] [place] infections w [id number] tel:[phone] sexl mode of [phone] transmissAcute vaginitisEncount er for screening for human [...] name Insurance type Covered libertarian ID Authorization(s) [facility] [id number] [facility] [id number] [facility] [id number] [facility] [id number] Social History Type Description Quantity Date Captured [...] For Visit Most recent encounter only, dated 04/07/2019 13:30'. Vaginal Discharge a /o Odor (chief complaint) Reason For Referral Reason For [...] No information Assessments Type Assessment Date assessment Dysuria assessment Encounter for test, result negative assessment Acute vaginitis Goals Health Concern Goal Type Priority Status Date No information Medical Equipment Description Device [place] Device Identifier Effective Dates (start - stop ) Status No information Mental Status Date Cognitive Assessment Normal Orientation Health Concerns Observation Date No information Concern Status Date No information
--- OUTSIDE RECORDS SUMMARY | 2019-05-11 05:57 | XMS REPORT | Continuity of Care Document ---
:1985 Author Organization [facility] Address [address] [place] [address] Phone Care Team Providers Name Role Phone Nita Le Unavailable Unavailable Allergies, Adverse Reactions, Alerts Substance Reaction Status Penicillins swelling Active Medications Medication Instructions Dosage Effective Dates Status Comments (start - stop) acyclovir 400 mg take 1 tablet by - Active tablet oral route 2 times a day Lexapro 20 mg tablet - Active Ortho Tri-Cyclen LO - Active (28) 0.18 mg/0.215 mg/0.25 mg-25 mcg tablet isotretinoin 10 mg - Active capsule metronidazole 500 mg take 1 tablet by - No Longer tablet oral route 2 times Active every day, no ETOH Problems Condition Effective Dates (start - Clinical [...] For Visit Copied on Encounter [facility] Sep-2 Nikc Moya. [facility] [place] [address], [place], [place], [address]. [facility], [facility] tel:[phone] [address], [place], [place], [id number], [place] tel:[phone] [facility] DysuriaEncounter Sep-2 Nick Moya. Referring [facility] [place] for [address] Provider: [facility] test, result [address] St, [place], [place], [address]. Romero, [address] [place] [address], 620 vaginitis tel:[phone] [address], [address], [place], [place], [address]. [id number], tel:[phone] [place] [phone] tel:[phone] [facility] Human Sep-0 Александр Referring [facility] [place] immunodeficiency Chika. 620 Provider: [place] virus [HIV] [address], Chika [place] counselingEncoun [place], [place], Александр Pardo, [place] [address] [place] [address], [place]. [address] screening for tel:+[phone] [address], St, [place], human [address] [place], [place], [address]. [id number], virusEncounter tel:[phone] [place] for surveillance [phone] tel:[phone] of contraceptive [phone] pillsEncntr screen for infections w sexl mode of transmiss [facility] Counseling, Sep-0 Ish Mendez. Referring [facility] [place] unspecified [address] Provider: [address], [place], [place], [address], White, 620 [facility], [address] [place]. [address], St, [place], [place], [id number], [address].Cons [place] ulting tel:[phone] Provider: [id number] [place]SE [place] [facility] Encounter for Mar-1 Ish Mendez. Referring [facility] [place] surveillance of [address] Provider: Wild contraceptive [address], [place], [place], [address], White, 620 [facility], 620 cerv smear to [place]. [address] cnfrm norm smr St, St, [place], fol init abn [place], [place], [place], [address]. [id number], screen for [place] infections w tel:+ sexl mode of [phone] transmiss [facility] Dec- Raphaelidis [facility] [place] Kourtney. [address], [place], [place], [facility], [address] [address]. [address] tel:+7 St, [place], [address] [place], [id number], [place] tel:+ [phone] [facility] Encounter for Jan- Gena Referring [facility] [place] test, Faiza. 620 W Provider: Wild result [address], Faiza [place] positiveHuman [place], [place], Kornblum [facility], [facility] immunodeficiency [address]. M, [address] virus [HIV] tel:+[address], St, [place], counselingEncntr [address] [place], [address]. [id number], infections w tel:+607 [place] sexl mode of [phone] tel:+[phone] transmissWeeks 635870 of gestation of not specifiedEncount er for screening for human immunodeficiency virus [facility] Atyp squam cell Mar-2 Jackidis Referring [facility] [place] of undet signfc Kourtney. [address] W Provider: Wild cyto smr crvx [address], [place] (ASC-US) [place], Raphaelidi [facility], [facility] [address]. s, [address] tel:+[phone], St, [place], [address] [place], [address]. [id number], tel:[phone] [place] [phone] tel:[phone] [facility] Human Mar-0 Romeo Referring [facility] [place] immunodeficiency 1-201 Tricia. 620 W Provider: [place] virus [HIV] [address], Tricia [place] counselingEncoun [place], [place], [address] [place] [address]. M, [address] general cnsl and tel:+[phone], St, [place], [place] [address] [place], [place], [place], [address]. [id number], ntr screen for tel:+607 [place] infections w [phone] tel:+[phone] sexl mode of [phone] transmissAcute vaginitisEncount er for screening for human [...] Record Payers Payer name Insurance type Covered democrat ID Authorization(s) [facility] [id number] [facility] [id number] [facility] [id number] [facility] [id number] Social History Type Description Quantity Date Captured [...] Date Type Action Status Appointment TATY ABARCA Unknown Immunization HPV (9-valent) ordered Unknown Immunization [...] Date No information Medical Equipment Description Device [place] Device Identifier Effective Dates (start - stop ) Status No information Mental Status Date Cognitive Assessment No information Health Concerns Observation Date No information Concern Status Date No information
--- OUTSIDE RECORDS SUMMARY | 2019-05-11 05:57 | XMS REPORT | Continuity of Care Document ---
:1985 Author Organization [facility] Address [address] [place] [address] Phone Care Team Providers Name Role Phone Vanessa Pimentel NP Unavailable Unavailable Allergies, Adverse Reactions, Alerts [...] tablet isotretinoin 10 mg - Active capsule azithromycin 500 mg take 2 tabs po now - No Longer tablet Active Problems Condition Effective Dates (start - Clinical [...] For Visit Copied on Encounter [facility] Sep-1 Parete [facility] [place] 0- Vanessa. [address], [place], [place], [place], 620 [address]. [address] tel:+[phone] St, [place], [address] [place], [id number], [place] tel:[phone] [facility] Human Sep-0 Александр Referring [facility] [place] immunodeficiency Chika. 620 Provider: [facility] virus [HIV] [address], Chika [place] counselingEncoun [place], [place], Александр J, [facility], [address] [place] for [address], [place]. [address] screening for tel:[phone] [address], St, [place], [place] [address] [place], [address]. [id number], virusEncounter tel:+[phone] [place] for surveillance [phone] tel:+6072 of contraceptive [id number] pillsEncntr screen for infections w sexl mode of transmiss [facility] Counseling, Sep-0 Ish Mendez. Referring [facility] [place] unspecified [address] Provider: [facility] 9 , [place], [place], [address], White, 620 [facility], 620 [place]. [address], St, [place], [place], [id number], [address].Cons [place] ulting tel:[phone] Provider: 113585 NURSE [place] [facility]. [facility] Encounter for Sep-1 Ish [facility]endez. [facility] [address] Provider: [facility] contraceptive [address], [place], [place], [address], White, [address] [place], 620 cerv smear to [place]. [address] cnfrm norm smr [address], St, [place], fol init ab[place], [place], [place], [address]. [id number], screen for [place] infections w tel:[phone] sexl mode of [phone] transmiss [facility] Dec- Raphaelidis [facility] [place] Kourtney. [address], [place], [place], [facility], 620 [address]. [address] tel:+[phone] St, [place], [address] [place], [id number], [place] tel:[phone] [facility] Encounter for Jessicalum Referring [facility] [place] test, Faiza. 620 W Provider: Southern result [address], Faiza [place] positiveHuman [place], [place], [facility], [facility] immunodeficiency [address]. M, [address] virus [HIV] tel:+[phone], St, [place], counselingEncntr [address] [place], [place], [address]. [id number], infections w tel:+[phone] [place] sexl mode of [id number] tel:+[phone] transmissWeeks 457884 of gestation of not specifiedEncount er for screening for human immunodeficiency virus [facility] Atyp squam cell Mar-2 [facility] Referring [facility] [place] of undet signfc Kourtney. 620 W Provider: Wild cyto smr crvx [address], [place]ney [place] (ASC-US) [place], [place], Raphaelidi [facility], 620 [address]. s, [address] tel:+[phone] [address], St, [place], [address] [place], [address]. [id number], tel:+[phone] [place] [phone] tel:[phone] [facility] Human Mar-0 Romeo Referring [facility] [place] immunodeficiency Tricia. 620 W Provider: [place] virus [HIV] [address], Tricia [place] counselingEncoun [place], Romeo [facility], [address] ter [place] [address]. M, [address] general cnsl and tel:+[phone] [address], St, [place], [place] [address] [place], [address]. [id number], ntr screen for tel:+161 [place] infections w [id number] tel:+[phone] sexl mode of [id number] transmissAcute vaginitisEncount er for screening for human immunodeficiency virus Family History Family Member Diagnosis Age At Onset 1st degree relative No hx of venous thromboembolism 1st degree relative No hx of coronary heart disease (female <65, male <55) Immunizations Vaccine Date Status Comments No information Payers Payer name Insurance type Covered republican ID Authorization(s) [facility] [id number] Social History Type Description Quantity Date Captured [...] Date No information Medical Equipment Description Device [place] Device Identifier Effective Dates (start - stop ) Status No information Mental Status Date Cognitive Assessment No information Health Concerns Observation Date No information Concern Status Date No information
--- OUTSIDE RECORDS SUMMARY | 2019-05-11 05:58 | XMS REPORT | Continuity of Care Document ---
:1985 Author Organization [facility] Address [address] [place] [address] Phone Care Team Providers Name Role Phone [...] human - immunodeficiency virus Procedures Procedure Date OTHER Medical Services Contraceptive Making Machine Catcher.Svc. Other Making Machine Catcher.Svc. STI Results Test Name Date and Time Measure Units Reference Range Abnormal Flag Status Comments No information Advance Directives Directive Yes / No Effective Date File Name No information Encounters Encounter Practice Location Reason(s) Diagnoses Date Provider Providers Description For Visit Copied on Encounter [facility] Sep-0 Александр Referring [facility] [place] immunodeficiency Chika. 620 Provider: [facility] virus [HIV] [address], Chika [place] counselingEncoun [place], [place], Александр J, [place], [address] [place] [address], [place]. [address] [place] screening for tel:+[phone], St, [place], human [address] [place], [address]. [id number], virusEncounter tel:+[phone] [place] for surveillance [id number] tel:+ of contraceptive 380884 pillsEncntr screen for infections w sexl mode of transmiss [facility] Counseling, Sep-0 Ish Mendez. Referring [facility] [place] /Education unspecified [address] [place] [address] [place] Provider: [facility] (chief [address], [place], [place] complaint) [place], [address], [place], 620 [place], 620 [place]. W [place] [address], St, [place], [place], [id number], [address].Cons [place] ulting tel:[phone] Provider: [id number] NURSE [place] [facility]. [facility] Encounter for Sep- Ish Tesfayea. [facility] of [address] [place] [address] [place] Provider: [facility] contraceptive [address], [place], [place], [address], White, 620 [place], 620 cerv smear to [place]. W [place] W [place] cnfrm norm smr St, St, [place], fol init abn [place], [place], [address]. [id number], screen for [place] infections w tel:[phone] sexl mode of [id number] transmiss [facility] Dec- Raphaelidis [facility] [place] Kourtney. [address], [place], [facility], 620 [address]. W [place] tel:+[phone] St, [place], [address] [place], [id number], [place] tel:[phone] [facility] Encounter for Alex- Jessicalum Referring [facility] [place] test, 4-201 Faiza. 620 W Provider: Wild result [address], Faiza [place] positiveHuman [place], [place], Kornblum [facility], [facility] immunodeficiency [address]. M, [address] [place] virus [HIV] tel:+[phone], St, [place], counselingEncntr [address] [place], [address]. [id number], infections w tel:+[phone] [place] sexl mode of [id number] tel:+[phone] transmissWeeks 563383 of gestation of not specifiedEncount er for screening for human immunodeficiency virus [facility] Atyp squam cell Mar-2 Raphaelisis Referring [facility] [place] of undet signfc 7- Kourtney. [address] W Provider: Wild cyto smr crvx [address], Kourtney [place] (ASC-US) [place], [place], Raphaelidi [facility], 620 [address]. s, [address] [place] tel:+[phone], St, [place], [address] [place], [address]. [id number], tel:+[phone] [place] [phone] tel:[phone] [facility] Human Mar-0 Romeo Referring [facility] [place] immunodeficiency 1-201 Tricia. 620 W Provider: [place] virus [HIV] [address], Tricia [place] counselingEncoun [place], Romeo [facility], [facility] ter for oth [address]. M, [address] W [address] [place] general cnsl and tel:+[phone] [address], St, [place], [place] [address] [place], [place], [address]. [id number], ntr screen for tel:+[phone] [place] infections w [id number] tel:[phone] sexl mode of [id number] transmissAcute vaginitisEncount er for screening for human immunodeficiency virus Family History Family Member Diagnosis Age At Onset 1st degree relative No hx of venous thromboembolism 1st degree relative No hx of coronary heart disease (female <65, male <55) Immunizations Vaccine Date Status Comments No information Payers Payer name Insurance type Covered constitution party ID Authorization(s) [facility] [id number] Social History Type Description Quantity Date Captured [...] Of Treatment Date Type Action Status Appointment Sti Check BOOKED History Of Present Illness Encounter Date Complaint History Of Present Illness No information Functional Status Date Functional Assessment No information Medications Administered Medication Instructions Dosage Effective Dates (start - stop) Status Comments No information Instructions Date Instruction Additional Information No information Assessments Type Assessment Date assessment Counseling, unspecified Goals Health Concern Goal Type Priority Status Date No information Medical Equipment Description Device [place] Device Identifier Effective Dates (start - stop ) Status No information Mental Status Date Cognitive Assessment No information Health Concerns Observation Date No information Concern Status Date No information
[2019-05-11] MEDS: KCL 10 MEQ/50 ML IVPREMIX* 10 MEQ/50 ML BAG IV SCH ×2 (06:53→08:32)
--- NOTE | 2019-05-11 07:25 | ED ---
Progress - Progress Note Progress Note: Receiving sign out from Dr. Mariah Winn to Dr. Alexis Mathews at change of shifts at 0700 on 05/11/19, pending sobriety and discharge. She is in stable condition. Re-Evaluation - Re-Evaluation First Eval Re-Evaluation Time: 08:30 Change: Improved Comment: Patient's condition has improved. Speach fluent. Denies injuries. Has a ride coming to bring her home. She reports significant vomiting last night. Course/Dx - Course Course Of Treatment: 33-year-old female with acute alcohol intoxication. Patient with vomiting. Given IV fluids, Zofran, Protonix. Patient given potassium for hypokalemia. Sign changes shift awaiting sobriety and reevaluation. - Diagnoses Provider Diagnoses: Alcohol intoxication, Hypokalemia, Vomiting Discharge ED - Sign-Out/Discharge Documenting (check all that apply): Receiving Sign-Out Receiving patient FROM: Mariah Winn - Receiving sign out from Dr. Mariah Winn to Dr. Alexis Mathews at change of shifts at 0700 on 05/11/19. - Discharge Plan Condition: Stable Disposition: HOME Patient Education Materials: Alcohol Intoxication (ED) Referrals: Yaz Maloney MD [Primary Care Provider] - Additional Instructions: Follow up with primary care provider in 2-3 days. Return to the emergency department if you experience new or worsening symptoms. - Attestation Statements Document Initiated by Scribe: Yes Documenting Scribe: Gautam Thompson Provider For Whom Scribe is Documenting (Include Credential): Alexis Mathews MD. Scribe Attestation: Gautam Reilly scribed for Alexis Mathews MD. on 05/11/19 at 0830. Status of Scribe Document: Ready
[2019-05-11 12:10] VITALS: BP 126/79
== END 2019-05-11 12:10 | disposition home or self-care (01) ==
LOC: ED 01:57
DX: F10.129 Alcohol abuse with intoxication, unspecified (principal); E87.6 Hypokalemia; R11.10 Vomiting, unspecified; Z88.0 Allergy status to penicillin
CPT/HCPCS: 36415; 80053; 80320; 80329; 83605; 85025; 96361; 96365; 96366; 96375; 99283; G0480; J2405; J3480

== ENCOUNTER 2019-07-19 16:19 | Emergency (ER) | payer BC ==
--- OUTSIDE RECORDS SUMMARY | 2019-07-19 16:25 | XMS REPORT | Continuity of Care Document ---
:1985 Author Organization [facility] Address [address] [place] [address] Phone Care Team Providers Name Role Phone [...] 2 times Active every day, no ETOH azithromycin 500 mg take 2 tabs po [...] Visit Copied on Encounter [facility] Ish Mendez. Referring Parenthood [place] immunodeficiency [address] Provider: [facility] virus [HIV] 9 , [place], [place], [address], [place], [address] [facility], [facility] ter for [place]. [address] surveillance of St, , [place], contraceptive [place], [place], [place], [address]. [id number], screen for [place] infections w tel:[phone] sexl mode of [id number] transmissRight lower quadrant painCyst of Bartholin's gland [facility] DysuriaEncounter Sep-2 Romero Nita. Referring [facility] [place] for [address] Provider: [facility] test, result 9 , [place], [place], [address]. Romero, [address] [place], 620 vaginitis tel:[phone] [address], [address], [place], [place], [address]. [id number], tel:[phone] [place] [phone] tel:[phone] [facility] Sep-1 [facility] [place] 0-Jania. [address], [place], [place], [place], [address]. [address] tel:[phone] , [place], [address] [place], [id number], [place] tel:[phone] [facility] Sep-0 Александр Referring Parenthood [place] immunodeficiency 6-201 Chika. 620 Provider: [facility] virus [HIV] [address], [place] counselingEncoun [place], [place], Александр J, [place], [address] [place] [address], [place]. [address] screening for tel:+[phone], St, [place], human [address] [place], [place], [address]. [id number], virusEncounter tel:+ [place] for surveillance [phone] tel: of contraceptive [phone] pillsEncntr screen for infections w sexl mode of transmiss [facility] Counseling, Sep-0 White Vanessa. Referring Parenthood [place] unspecified [address] Provider: [facility] [address], [place], [place], [address], [place], [address] [place], 620 [place]. [address], St, [place], [place], [id number], [address].Cons [place] ulting tel:+ Provider: [phone] NURSE [place] [facility]. [facility] Encounter for Ish Mendez. Referring Parenthood [place] surveillance of [address] Provider: [facility] contraceptive [address], [place], [place], [address], [place], [address] [place], 620 cerv smear to [place]. [address] cnfrm norm smr St, St, [place], fol init abn [place], [place], [address]. [id number], screen for [place] infections w tel:+ sexl mode of [id number] transmiss [facility] [place] Kourtney. [address], [place], [place], [place], [address]. [address] tel:+7 St, [place], [address] [place], [id number], [place] tel:+ [phone] [facility] Encounter for Jessicalum Referring Parenthood [place] test, Faiza. [address] Provider: [facility] result [address], [place] positiveHuman [place], [place], [place], 620 immunodeficiency [address]. M, [address] virus [HIV] tel:[phone] [address], St, [place], counselingEncntr [address] [place], [place], [address]. [id number], infections w tel:[phone] [place] sexl mode of [id number] tel:[phone] transmissWeeks [phone] of gestation of not specifiedEncount er for screening for human immunodeficiency virus [facility] Atyp squam cell Mar-2 Raphaelisis Referring Parenthood [place] of undet signfc 7-201 Kourtney. 620 W Provider: [place] cyto smr crvx [address], [place] (ASC-US) [place], [place] [address]. s, [address] tel:[phone], St, [place], [address] [place], [place], [address]. [id number], tel:[phone] [place] [phone] tel:[phone] [facility] Mar-0 Romeo Referring Parenthood [place] immunodeficiency 1-201 Tricia. [address] Provider: [place] virus [HIV] [address], T[place] counselingEncoun [place], Romeo [facility], [facility] ter [place] [address]. M, [address] general cnsl and tel:[phone], St, [place], [place] [address] [place], [place], [place], [address]. [id number], ntr screen for tel:[phone] [place] infections w [phone] tel:[phone] sexl mode of [id number] transmissAcute vaginitisEncount er for screening for human [...] name Insurance type Covered democrat ID Authorization(s) [id number] [facility] [id number] [facility] [id number] [facility] [id number] Social History Type Description Quantity Date Captured [...] Date No information Medical Equipment Description Device Elizabeth Device Identifier Effective Dates (start - stop ) Status No information Mental Status Date Cognitive Assessment No information Health Concerns Observation Date No information Concern Status Date No information
[2019-07-19 16:31] VITALS: BP 136/80
--- NOTE | 2019-07-19 16:57 | UC ---
Throat Pain/Nasal Leno HPI - HPI Summary HPI Summary: has had sore throat for 2 days, today much worse, has been eating popsicles to help pain. - History of Current Complaint Chief Complaint: UCGeneralIllness Stated Complaint: SORE THROAT Time Seen by Provider: 07/19/19 16:27 Hx Obtained From: Patient Hx Last Menstrual Period: 07/13/19 Onset/Duration: Gradual Onset Severity: Moderate Pain Intensity: 6 Cough: Nonproductive - rare Associated Signs & Symptoms: Positive: Hoarseness. Negative: Sinus Discomfort, Nasal Discharge, Fever - Allergies/Home Medications Allergies/Adverse Reactions: Allergies Allergy/AdvReac Type Severity Reaction Status Date / Time fire ant Allergy Anaphylatic Verified 07/19/19 16:31 Shock Penicillins Allergy Swelling Verified 07/19/19 16:31 Home Medications: Home Medications Escitalopram * [Lexapro 10 mg (NF)] 10 mg PO BEDTIME 07/19/19 [History Confirmed 07/19/19] Letrozole 2.5 mg PO DAILY WITH MEAL 07/19/19 [History Confirmed 07/19/19] Bbz751/Iron Fum/Folic/Docusate [ 19 Tablet] 1 tab PO DAILY WITH MEAL 11/02 [History Confirmed 07/19/19] predniSONE [Prednisone 5 MG Tab.Ds.Pk] 5 mg PO DAILY WITH MEAL 07/19/19 [ History Confirmed 07/19/19] PMH/Surg Hx/FS Hx/Imm Hx Previously Healthy: Yes Psychological History: Depression - Surgical History Surgical History: Yes Surgery Procedure, Year, and Place: breast reduction age 16 - Family History Known Family History: Negative: Cardiac Disease, Hypertension, Diabetes - Social History Occupation: Employed Full-time Lives: With Family Alcohol Use: Occasionally Substance Use Type: None Substance Use Comment - Amount & Last Used: unknown Smoking Status (MU): Never Smoked Tobacco Review of Systems All Other Systems Reviewed And Are Negative: Yes Constitutional: Positive: Negative Skin: Positive: Negative. Negative: Rash Eyes: Positive: Negative ENT: Positive: Sore Throat Respiratory: Positive: Negative Cardiovascular: Positive: Negative Neurological: Positive: Negative. Negative: Headache Psychological: Positive: Negative Is Patient Immunocompromised?: No Physical Exam Triage Information Reviewed: Yes Appearance: Well-Appearing, No Pain Distress, Well-Nourished Vital Signs: Initial Vital Signs Temp 96.3 F 07/19/19 16:26 Pulse 89 07/19/19 16:26 Resp 16 07/19/19 16:26 BP 136/80 07/19/19 16:26 Pulse Ox 98 07/19/19 16:26 Vital Signs Reviewed: Yes Eyes: Positive: Conjunctiva Clear ENT: Positive: Pharyngeal erythema, TMs normal, Tonsillar swelling. Negative: Nasal congestion Neck exam: Normal Neck: Positive: No Lymphadenopathy Respiratory Exam: Normal Respiratory: Positive: Lungs clear Cardiovascular Exam: Normal Cardiovascular: Positive: RRR Psychological Exam: Normal Skin Exam: Normal Skin: Negative: Rashes Throat Pain/Nasal Course/Dx - Differential Dx/Diagnosis Differential Diagnosis/HQI/PQRI: Pharyngitis, Sinusitis, Tonsillitis, URI Provider Diagnosis: Strep throat Discharge ED - Sign-Out/Discharge Documenting (check all that apply): Patient Departure All imaging exams completed and their final reports reviewed: No Studies - Discharge Plan Condition: Good Disposition: HOME Prescriptions: Azithromyxin MIGUEL (NF) [Z-Miguel (Zithromax) 250 mg tabs #6] 2 tab PO .TODAY, THEN 1 DAILY #6 tab Patient Education Materials: Strep Throat (ED) Referrals: Yaz Maloney MD [Primary Care Provider] - 2 Days (if no better) Additional Instructions: start antibiotic today ibuprofen 800mg every 6 hours as needed for pain and fever drink plenty of fluids and rest - Billing Disposition and Condition Condition: GOOD Disposition: Home
== END 2019-07-19 17:03 | disposition home or self-care (01) ==
LOC: UCEAST 16:19
DX: J02.0 Streptococcal pharyngitis (principal); F32.9 Major depressive disorder, single episode, unspecified; Z79.899 Other long term (current) drug therapy; Z88.0 Allergy status to penicillin; Z91.09 Other allergy status, other than to drugs and biological substances
CPT/HCPCS: 87651; 99212; G0463

== ENCOUNTER 2021-05-04 12:16 | Inpatient (IN) ==
[~2021-05-04 12:16] MED LIST: Betamethasone 6 mg/ml 5 ml VIAL IM ONE
[2021-05-04 13:25] LABS: ABS Basophils 0.1 10^3/ul (0-0.2); ABS Eosinophils 0.1 10^3/ul (0-0.6); ABS Lymphocytes 2.9 10^3/ul (1.0-4.8); ABS Monocytes 0.7 10^3/ul (0-0.8); ABS Neutrophils 7.7 10^3/ul (1.5-7.7); Eosinophil % 1.2 %; Hematocrit 40 % (35-47); Hemoglobin 13.5 g/dL (12.0-16.0); Lymphocyte % 25.1 %; Mean Corpuscular HGB Conc 34 g/dL (31-36); Mean Corpuscular Hemoglobin 28 pg (27-31); Mean Corpuscular Volume 84 fL (80-97); Mean Platelet Volume 9.7 fL (7.4-10.4); Platelet Count 264 10^3/uL (150-450); Red Blood Count 4.77 10^6 /uL (3.70-4.87); Red Cell Distribution Width 14 % (10-15); White Blood Count 11.5 10^3/uL (3.5-10.8)
[2021-05-04 13:43] LABS: Calcium 8.4 mg/dL (8.6-10.3); Potassium 4.6 mmol/L (3.5-5.0); Total Bilirubin 0.4 mg/dL (0.2-1.0)
[2021-05-04] MEDS ORDERED: Lactated Ringers 1000 ml BAG 1,000 ML IV ONE (17:59)
[2021-05-04] MEDS ORDERED: Buffered Lidocaine 1% SYRIN 1 ml INTRADERM ONE (17:59)
[2021-05-04] MEDS ORDERED: Magnesium Sulfate OB PREMIX 4 GM/100 ML BAG IV ONE (17:59)
[2021-05-04] MEDS ORDERED: Lactated Ringers 1000 ml BAG 1,000 ML IV SCH ×2 (18:00→22:00)
[2021-05-04] MEDS ORDERED: Magnesium Sulfate OB PREMIX 40 GM/1,000 ML BAG IVPB SCH (18:00)
[2021-05-04] MEDS ORDERED: Labetalol IV 5 MG/ML 20 ml VIAL IV PUSH ONE (18:06)
[2021-05-04] MEDS ORDERED: Sodium Citrate/Citric Acid LIQ 15 ML UDC PO ONE (19:04)
[2021-05-04] MEDS ORDERED: ceFOXitin 2 GM IVPREMIX 2 GM/50 ML BAG IVPB ONE (19:04)
[2021-05-04 19:22] LABS: Rapid COVID-19 Molecular Undetected (Undetected)
[2021-05-04] MEDS ORDERED: Sodium Citrate/Citric Acid LIQ 15 ML UDC ONE (20:02)
[2021-05-04] MEDS ORDERED: Ondansetron 4 mg VIAL 2 MG/ML 2 ml VIAL ONE (20:08)
[2021-05-04] MEDS ORDERED: Oxytocin 10 UNITS/ML 1 ML VIAL ONE (20:08)
[2021-05-04] MEDS ORDERED: Dexamethasone IV 4 MG/ML VIAL 1 ml VIAL ONE (20:08)
[2021-05-04] MEDS ORDERED: Morphine PF AMP (0.5MG/ML) 5 MG/10 ML AMP ONE (20:10)
[2021-05-04] MEDS ORDERED: EPHEDrine (Pressors) 50 MG/ML VIAL ONE (21:08)
[2021-05-04] MEDS ORDERED: Phenylephrine 40 mcg/mL 10mL (400mcg) SYRINGE ONE (21:10)
[2021-05-04] MEDS ORDERED: Prochlorperazine 5 mg/ml 2 ml VIAL (10 mg) IV PRN (21:25)
[2021-05-04] MEDS ORDERED: Acetaminophen IV 1 GM/100ML 100 ML IV ONE (21:25)
[2021-05-04] MEDS ORDERED: Naloxone 0.4 mg VIAL 0.4 mg/ml 1 ml VIAL IV PRN ×2 (21:25→21:27)
[2021-05-04] MEDS ORDERED: fentaNYL 100 mcg/2 ml 50 MCG/ML VIAL IV PRN (21:25)
[2021-05-04] MEDS ORDERED: diPHENhydraMINE IV 50 MG/ML 1 ml VIAL (BENADRYL) IV PRN (21:27)
[2021-05-04] MEDS ORDERED: Scopolamine PATCH Remove NOTE PATCH OFF ONE (21:27)
[2021-05-04] MEDS ORDERED: Ondansetron 4 mg VIAL 2 MG/ML 2 ml VIAL IV PRN (21:27)
[2021-05-04] MEDS ORDERED: Glycerin ADULT 2.4 gm SUPP PR PRN (21:53)
[2021-05-04] MEDS ORDERED: Dibucaine 1% OINT 28.35 GM TUBE PR PRN (21:53)
[2021-05-04] MEDS ORDERED: RHO D Immune Globulin (HUMAN) 300 MCG = 1,500 I.U. INJ IM PRN (21:53)
[2021-05-04] MEDS ORDERED: Witch Hazel PAD JAR TOPICAL PRN (21:53)
[2021-05-04] MEDS ORDERED: Oxytocin in LR 20 UNITS/1,000 ML BAG IVPB SCH (22:00)
[2021-05-04 22:41] LABS: Urine Appearance Clear; Urine Bilirubin Negative (Negative); Urine Blood Negative (Negative); Urine Color Straw; Urine Glucose Negative (Negative); Urine Ketones Negative (Negative); Urine Nitrite Negative (Negative); Urine Protein 2+(100 mg/dL) (Negative); Urine Specific Gravity 1.005 (1.002-1.030); Urine Urobilinogen Negative (Negative)
[2021-05-04 22:58] LABS: Urine Bacteria Absent (Absent); Urine Red Blood Cell Absent (Absent); Urine Squamous Epithelial Cell Present (Absent); Urine White Blood Cell Trace(0-5/hpf) (Absent)
[2021-05-04 23:11] LABS: Urine Benzodiazepine Screen None Detected (None Detect); Urine Cannabinoids Screen None Detected (None Detect); Urine Opiates Screen None Detected (None Detect)
[2021-05-05 08:26] LABS: ABS Monocytes 0.6 10^3/ul (0-0.8); ABS Neutrophils 17.7 10^3/ul (1.5-7.7); Hematocrit 37 % (35-47); Hemoglobin 12.1 g/dL (12.0-16.0); Lymphocyte % 9.8 %; Mean Corpuscular HGB Conc 33 g/dL (31-36); Mean Corpuscular Hemoglobin 28 pg (27-31); Mean Corpuscular Volume 86 fL (80-97); Mean Platelet Volume 9.4 fL (7.4-10.4); Platelet Count 271 10^3/uL (150-450); Red Blood Count 4.28 10^6 /uL (3.70-4.87); Red Cell Distribution Width 14 % (10-15); White Blood Count 20.2 10^3/uL (3.5-10.8)
[2021-05-05] MEDS ORDERED: Measles, Mumps,Rubella VACC 0.5 ML/VIAL SUBCUT ONE (09:00)
[2021-05-07 15:49] VITALS: BP 150/76
== END 2021-05-07 16:56 | disposition home or self-care (01) | DRG 540 ==
LOC: MCHOBOUT 12:16 → MCHOB 18:17
PROVIDERS: ADMIT Obstetrics & Gynecology; ATTEND Obstetrics & Gynecology

== ENCOUNTER 2023-11-28 10:54 | Inpatient (IN) ==
[2023-11-28] MEDS ORDERED: Lactated Ringers 1000 ml BAG 1,000 ML IV ONE ×2 (11:37→11:48)
[2023-11-28] MEDS ORDERED: Buffered Lidocaine 1% SYRIN 1 ml INTRADERM ONE ×2 (11:37→11:48)
[2023-11-28] MEDS ORDERED: Calcium Gluconate 1 GM/10 ML VIAL (in Pyxis) IV PUSH PRN (11:40)
[2023-11-28] MEDS ORDERED: ceFOXitin 2 GM IVPREMIX 2 GM/50 ML BAG IVPB ONE (11:48)
[2023-11-28] MEDS ORDERED: Sodium Citrate/Citric Acid LIQ 15 ML UDC PO ONE (11:48)
[2023-11-28] MEDS ORDERED: Lactated Ringers 1000 ml BAG 1,000 ML IV SCH ×2 (12:00→15:00)
[2023-11-28] MEDS: Lactated Ringers 1000 ml BAG 1,000 ML IV SCH (12:04)
[2023-11-28] MEDS ORDERED: Morphine PF AMP (0.5MG/ML) 5 MG/10 ML AMP ONE (12:08)
[2023-11-28] MEDS ORDERED: fentaNYL 100 mcg/2 ml 50 MCG/ML VIAL ONE (12:08)
[2023-11-28] MEDS: Magnesium Sulfate OB PREMIX 4 GM/100 ML BAG IV ONE (12:09)
[2023-11-28 12:18] LABS: ABS Basophils 0.1 10^3/uL (0.0-0.1); ABS Eosinophils 0.1 10^3/uL (0.0-0.5); ABS Lymphocytes 2.5 10^3/uL (1.0-4.8); ABS Monocytes 0.7 10^3/uL (0.0-0.9); ABS Neutrophils 9.9 10^3/uL (1.5-7.6); ABS Nucleated RBC 0.01 10^3/ul; Eosinophil % 0.8 %; Hemoglobin 12.5 g/dL (11.5-14.3); Lymphocyte % 18.9 %; Mean Corpuscular Hgb Conc 32.8 g/dL (31-36); Mean Corpuscular Volume 79.2 fL (80-97); Mean Platelet Volume 9.7 fL (7.5-11.2); Nucleated Red Blood Cells % 0.1 %/100WBC (0.0-0.8); Platelet Count 309 10^3/uL (150-450); Red Cell Distribution Width 15.5 % (12-17); White Blood Count 13.3 10^3/uL (3.8-11.8)
[2023-11-28] MEDS ORDERED: Oxytocin 10 UNITS/ML 1 ML VIAL ONE (12:27)
[2023-11-28] MEDS ORDERED: Dexamethasone IV 4 MG/ML VIAL 1 ml VIAL ONE (12:28)
[2023-11-28] MEDS ORDERED: Sodium Citrate/Citric Acid LIQ 15 ML UDC ONE (12:28)
[2023-11-28] MEDS ORDERED: Ondansetron 4 mg VIAL 2 MG/ML 2 ml VIAL ONE (12:28)
[2023-11-28] MEDS: Sodium Citrate/Citric Acid LIQ 15 ML UDC PO ONE (12:29)
[2023-11-28] MEDS: Magnesium Sulfate OB PREMIX 40 GM/1,000 ML BAG IVPB SCH (12:30)
[2023-11-28 13:00] LABS: Albumin 2.7 g/dL (3.2-5.2); Albumin/Globulin Ratio 1.2 (1-3); Calcium 8.1 mg/dL (8.6-10.3); Creatinine, Serum 0.86 mg/dL (0.51-0.95); Globulin 2.3 g/dL (2-4); Potassium 4.6 mmol/L (3.5-5.0); Total Bilirubin 0.2 mg/dL (0.2-1.0); eGFR CKD-EPI 88.1 (>60)
[2023-11-28] MEDS ORDERED: Phenylephrine 40 mcg/mL 10mL (400mcg) SYRINGE ONE ×2 (13:09→13:24)
[2023-11-28 13:51] LABS: Urine Appearance Clear; Urine Bilirubin Negative (Negative); Urine Blood Trace (Negative); Urine Color Yellow; Urine Glucose Negative (Negative); Urine Ketones Negative (Negative); Urine Nitrite Negative (Negative); Urine Protein 3+ (>=300 mg/dL) (Negative); Urine Specific Gravity 1.033 (1.002-1.030); Urine Urobilinogen Negative (Negative); Urine pH 6.5 (5.0-8.0)
[2023-11-28 14:07] LABS: Urine Bacteria Absent /HPF (Absent); Urine Red Blood Cell Trace(0-2/hpf) /HPF (0-Trace); Urine Squamous Epithelial Cell Present /HPF (Absent); Urine White Blood Cell Trace(0-5/hpf) /HPF (0-Trace)
[2023-11-28] MEDS ORDERED: Dibucaine 1% OINT 28.35 GM TUBE PR PRN (14:37)
[2023-11-28] MEDS ORDERED: Glycerin ADULT 2.4 gm SUPP PR PRN (14:37)
[2023-11-28] MEDS ORDERED: Witch Hazel PAD JAR TOPICAL PRN (14:37)
[2023-11-28] MEDS ORDERED: Oxytocin in LR 20,000 MILLI.UNIT/1,000 ML BAG IV SCH (14:40)
[2023-11-28 14:41] LABS: Urine Benzodiazepine Screen None Detected (None Detect); Urine Cannabinoids Screen None Detected (None Detect); Urine Opiates Screen None Detected (None Detect)
[2023-11-28] MEDS ORDERED: Naloxone 0.4 mg VIAL 0.4 mg/ml 1 ml VIAL IV PUSH PRN (15:59)
[2023-11-28] MEDS ORDERED: Acetaminophen IV 1 GM/100ML 1,000 MG/100 ML BAG IV PRN (15:59)
[2023-11-28] MEDS ORDERED: Metoclopramide 5 MG/ML VIAL (10 mg) IV PRN (15:59)
[2023-11-28] MEDS: ceFOXitin 3 GM in NS 0.9% 100 ml BAG 100 ML IVPB ONE (16:56)
[2023-11-28] MEDS: RHO D Immune Globulin (HUMAN) 300 MCG = 1,500 I.U. INJ IM PRN (18:43)
[2023-11-28] MEDS: Oxytocin in LR 20,000 MILLI.UNIT/1,000 ML BAG IV SCH (19:11)
[2023-11-28] MEDS: Ondansetron 4 mg VIAL 2 MG/ML 2 ml VIAL IV PRN (19:16)
[2023-11-29 07:19] LABS: ABS Lymphocytes 3.3 10^3/uL (1.0-4.8); ABS Monocytes 0.9 10^3/uL (0.0-0.9); Eosinophil % 0.1 %; Hematocrit 36.4 % (35-45); Mean Corpuscular Hgb Conc 32.9 g/dL (31-36); Mean Platelet Volume 9.2 fL (7.5-11.2); Platelet Count 301 10^3/uL (150-450); Red Blood Count 4.61 10^6/uL (3.63-4.92); Red Cell Distribution Width 15.2 % (12-17); White Blood Count 19.2 10^3/uL (3.8-11.8)
[2023-11-30 09:42] VITALS: BP 147/82
== END 2023-11-30 16:20 | disposition home or self-care (01) | DRG 540 ==
LOC: MCHOBOUT 10:54 → MCHOB 11:39
PROVIDERS: ADMIT Obstetrics & Gynecology; ATTEND Obstetrics & Gynecology